=== PATIENT | female | born 1955 | race Two or more races ===

== ENCOUNTER 2021-03-06 15:50 | Outpatient (CLI) | payer OTHER | END 2021-03-06 15:55 | disposition home or self-care (01) | LOC: PPH VACUNA 15:50 | PROVIDERS: ATTEND Emergency Medicine Pediatric Emergency Medicine | DX: Z23 Encounter for immunization (principal) ==

== ENCOUNTER 2024-06-11 09:14 | Outpatient (CLI) | payer OTHER | END 2024-06-11 09:16 | disposition home or self-care (01) | LOC: SONOGRAMA 09:14 | PROVIDERS: ATTEND Pathology Anatomic Pathology & Clinical Pathology | DX: D34 Benign neoplasm of thyroid gland (principal); E07.89 Other specified disorders of thyroid; E04.2 Nontoxic multinodular goiter ==